=== PATIENT | male | born 1985 | race Caucasian/White ===

== ENCOUNTER 2016-05-04 07:46 | Emergency (ER) | payer OTHER, MEDICARE | END 2016-05-04 09:12 | disposition home or self-care (01) | LOC: ER 07:46 | DX: J40 Bronchitis, not specified as acute or chronic (principal); R50.9 Fever, unspecified; R05 Cough; M79.1 Myalgia; F17.210 Nicotine dependence, cigarettes, uncomplicated; Z88.0 Allergy status to penicillin | CPT/HCPCS: 71020; 87400; 99283 ==